=== PATIENT | male | born 1950 | race Caucasian/White ===

== ENCOUNTER → 2021-02-11 | Outpatient (CLI) | payer OTHER | END | disposition home or self-care (01) | LOC: RAH 13:18 | PROVIDERS: ATTEND Orthopaedic Surgery | DX: M24.811 Other specific joint derangements of right shoulder, not elsewhere classified (principal); M21.921 Unspecified acquired deformity of right upper arm | CPT/HCPCS: 73200 ==

== ENCOUNTER → 2022-09-09 | Outpatient (CLI) | payer OTHER | END | disposition home or self-care (01) | LOC: SHCH 13:58 | PROVIDERS: ATTEND Internal Medicine Cardiovascular Disease | DX: I51.7 Cardiomegaly (principal); R06.02 Shortness of breath; I51.89 Other ill-defined heart diseases | CPT/HCPCS: 93306 ==

== ENCOUNTER → 2022-09-13 | Outpatient (CLI) | payer OTHER ==
[~2022-09-13] MED LIST: REGADENOSON 0.4 MG/5 ML PF SYG IVP ONE
== END | disposition home or self-care (01) ==
LOC: SHCH 08:55
PROVIDERS: ATTEND Internal Medicine Cardiovascular Disease
DX: I20.9 Angina pectoris, unspecified (principal); R94.31 Abnormal electrocardiogram [ECG] [EKG]
CPT/HCPCS: 78452; 96374; 93017; J2785; A9500 ×2

== ENCOUNTER → 2023-05-19 | Outpatient (CLI) | payer OTHER | END | disposition home or self-care (01) | LOC: RAH 11:59 | PROVIDERS: ATTEND Orthopaedic Surgery | DX: M17.11 Unilateral primary osteoarthritis, right knee (principal) | CPT/HCPCS: 73700 ==

== ENCOUNTER 2023-06-13 05:51 | Observation (INO) | payer OTHER ==
[2023-06-07 16:46] VITALS: BP 128/78; PULSE 77; RESP 17
[~2023-06-13] VITALS: Ht 162.6 cm; Wt 74.7 kg
[2023-06-13] VITALS (38 sets, daily range): BP systolic 111–149; BP diastolic 65–96; PULSE 40–82; RESP 14–20; O2SAT 98–99
[2023-06-13] MEDS: CEFAZOLIN SODIUM 2 GM VIAL ONE (07:17)
[2023-06-13] MEDS: LACTATED RINGERS 1000ML 1,000 ML IV ONE (07:17)
[2023-06-13] MEDS ORDERED: POTASSIUM CHLORIDE 10% ELIXIR 20 MEQ/15 ML UDCUP PO PRN (08:30)
[2023-06-13] MEDS ORDERED: POTASSIUM CHLORIDE 20MEQ/100ML 100 ML IV PRN (08:30)
[2023-06-13] MEDS: ACETAMINOPHEN 1,000 MG/100 ML VIAL IV SCH ×2 (08:30→20:23)
[2023-06-13] MEDS ORDERED: HYDROCODONE/ACETAMINOPHEN 5/325 MG TAB PO PRN (08:30)
[2023-06-13] MEDS: FAMOTIDINE 20MG TAB PO SCH (09:00)
[2023-06-13] MEDS: ASPIRIN 81 MG EC TAB PO SCH (09:00)
[2023-06-13] MEDS: POLYETHYLENE GLYCOL 3350 17 GM POWD.PACK PO SCH (09:00)
[2023-06-13] MEDS ORDERED: TRANEXAMIC ACID 1000MG/10ML ONE ×2 (09:16→09:36)
[2023-06-13] MEDS ORDERED: DICL35CA3 PO (10:12)
[2023-06-13] MEDS ORDERED: GABA300S3 PO (10:12)
[2023-06-13] MEDS ORDERED: BUSP5TAB3 PO (10:12)
[2023-06-13] MEDS ORDERED: TIZA4CAP8 PO (10:12)
[2023-06-13] MEDS ORDERED: MIDAZOLAM HCL 1 MG/ML 2ML VIAL ONE (10:34)
[2023-06-13] MEDS ORDERED: ROPIVACAINE 0.5% 5MG/ML 30ML ONE (10:36)
[2023-06-13] MEDS ORDERED: PROPOFOL 10 MG/ML 20ML VIAL IV ONE (10:39)
[2023-06-13] MEDS ORDERED: ROCURONIUM BROMIDE 10MG/1ML 5ML VL ONE ×2 (10:39→11:25)
[2023-06-13] MEDS ORDERED: DEXAMETHASONE SOD PHOSPHATE 10MG/ML 1ML VIAL ONE (10:48)
[2023-06-13] MEDS: CEFAZOLIN SODIUM 2 GM VIAL IVPB ONE (11:10)
[2023-06-13 11:23] LABS: CREATININE 0.7 mg/dL (0.5-1.3); POTASSIUM 3.2 mmol/L (3.5-5.1)
[2023-06-13 11:25] LABS: INR 1.01 (0.85-1.15); PROTHROMBIN TIME 11.9 SEC (9.6-11.6)
[2023-06-13 11:26] LABS: BASOPHILS # (AUTO) 0.04 K/uL (0.00-0.20); BASOPHILS % (AUTO) 0.6 % (0.0-5.0); EOSINOPHILS # (AUTO) 0.25 K/uL (0.00-0.70); EOSINOPHILS % (AUTO) 3.7 % (0.0-8.0); HEMATOCRIT 38.3 % (42-54); IMMATURE GRANULOCYTE ABSOLUTE 0.02 K/uL (0-1); LYMPHOCYTES # (AUTO) 2.3 K/uL (1.0-4.8); LYMPHOCYTES % (AUTO) 34.5 % (21.0-51.0); MEAN CORPUSCULAR HEMOGLOBIN 30.6 pg (27.0-33.0); MEAN CORPUSCULAR HGB CONC 33.4 g/dL (32.0-36.0); MEAN CORPUSCULAR VOLUME 91.6 fL (79-99); MONOCYTES # (AUTO) 0.7 K/uL (0.1-1.0); MONOCYTES % (AUTO) 9.7 % (3.0-13.0); NEUTROPHILS # (AUTO) 3.5 K/uL (1.8-7.7); NEUTROPHILS % (AUTO) 51.2 % (40.0-77.0); PARTIAL THROMBOPLASTIN TIME 29.9 SEC (26.3-35.5); PLATELET COUNT (AUTO) 205 K/uL (130-400); RED BLOOD CELL COUNT(AUTO) 4.18 MIL/uL (4.50-6.20); RED CELL DISTRIBUTION WIDTH 13.4 % (11.0-15.5); WHITE BLOOD COUNT (AUTO) 6.8 K/uL (4.8-10.8)
[2023-06-13] MEDS ORDERED: FENTANYL CITRATE PF 50 MCG/1 ML 2ML VIAL ONE ×2 (11:28→11:52)
[2023-06-13] MEDS: CALDOLOR 800MG+NS 250ML 250 ML IV SCH (11:30)
[2023-06-13] MEDS ORDERED: IBUPROFEN 800MG + NS 250ML IV SCH (11:30)
[2023-06-13] MEDS: HYDROMORPHONE 1 MG INJ ONE (11:44)
[2023-06-13] MEDS ORDERED: NEOSTIGMINE METHYLSULFATE 1MG/ML IV ONE (12:17)
[2023-06-13] MEDS: ACETAMINOPHEN 1,000 MG/100 ML VIAL IV ONE (13:27)
[2023-06-13] MEDS ORDERED: CEFAZOLIN SODIUM 2 GM VIAL IVPB SCH (13:30)
[2023-06-13] MEDS: 0.9%NACL 1000ML 1,000 ML IV SCH (16:49)
[2023-06-13] MEDS: CEFAZOLIN SODIUM 2 GM VIAL IVPB SCH (19:01)
[2023-06-14] VITALS (8 sets, daily range): BP systolic 127–144; BP diastolic 65–78; PULSE 68–118; RESP 18–20; O2SAT 95–98
[2023-06-14] MEDS: MORPHINE 4 MG SYG IVP PRN (02:49)
[2023-06-14 04:47] LABS: HEMATOCRIT 37.3 % (42-54); MEAN CORPUSCULAR HEMOGLOBIN 30.9 pg (27.0-33.0); MEAN CORPUSCULAR HGB CONC 33.2 g/dL (32.0-36.0); RED BLOOD CELL COUNT(AUTO) 4.01 MIL/uL (4.50-6.20); WHITE BLOOD COUNT (AUTO) 9.2 K/uL (4.8-10.8)
[2023-06-14 05:00] LABS: CREATININE 0.9 mg/dL (0.5-1.3); POTASSIUM 3.3 mmol/L (3.5-5.1)
[2023-06-14] MEDS: KCL 20 MEQ ERTAB PO PRN (06:30)
[2023-06-14] MEDS: HYDROCODONE/ACETAMINOPHEN 10/325 MG TAB PO PRN (06:31)
[2023-06-14] MEDS: ACETAMINOPHEN 500 MG TABLET PO PRN (16:41)
[2023-06-14] MEDS ORDERED: 0.9%NACL 1000ML 1,000 ML IV SCH (18:00)
[2023-06-14 18:04] LABS: BASOPHILS # (AUTO) 0.03 K/uL (0.00-0.20); BASOPHILS % (AUTO) 0.2 % (0.0-5.0); EOSINOPHILS # (AUTO) 0.04 K/uL (0.00-0.70); EOSINOPHILS % (AUTO) 0.3 % (0.0-8.0); HEMATOCRIT 39.6 % (42-54); IMMATURE GRANULOCYTE ABSOLUTE 0.06 K/uL (0-1); LYMPHOCYTES # (AUTO) 1.2 K/uL (1.0-4.8); LYMPHOCYTES % (AUTO) 9.6 % (21.0-51.0); MEAN CORPUSCULAR HGB CONC 33.1 g/dL (32.0-36.0); MEAN CORPUSCULAR VOLUME 93.8 fL (79-99); MONOCYTES # (AUTO) 0.9 K/uL (0.1-1.0); MONOCYTES % (AUTO) 6.6 % (3.0-13.0); NEUTROPHILS # (AUTO) 10.7 K/uL (1.8-7.7); NEUTROPHILS % (AUTO) 82.8 % (40.0-77.0); PLATELET COUNT (AUTO) 190 K/uL (130-400); RED BLOOD CELL COUNT(AUTO) 4.22 MIL/uL (4.50-6.20); RED CELL DISTRIBUTION WIDTH 13.2 % (11.0-15.5); WHITE BLOOD COUNT (AUTO) 12.9 K/uL (4.8-10.8)
[2023-06-14 18:25] LABS: POTASSIUM 3.7 mmol/L (3.5-5.1)
[2023-06-14 18:30] LABS: BILIRUBIN,TOTAL 1.8 mg/dL (0.2-1.0); MAGNESIUM 1.6 mg/dL (1.80-2.40); TOTAL PROTEIN, SERUM 6.9 g/dL (6.0-8.3)
[2023-06-14 19:18] LABS: APPEARANCE,URINE CLOUDY (CLEAR); BILIRUBIN,URINE NEGATIVE (NEGATIVE); COLOR,URINE YELLOW (YELLOW); GLUCOSE, URINE (UA) NEGATIVE (NEGATIVE); KETONES,URINE 5 mg/dL (NEGATIVE); LEUKOCYTE ESTERASE ,URINE 500 Leu/uL (NEGATIVE); NITRATE,URINE NEGATIVE (NEGATIVE); OCCULT BLOOD,URINE MODERATE (NEGATIVE); PH,URINE 6.5 (5.0-8.0); PROTEIN,URINE 30 mg/dL (NEGATIVE); UROBILINOGEN,URINE 0.2 mg/dL (0.2-1.0)
[2023-06-14 19:24] LABS: ADD UA MICROSCOPIC YES
[2023-06-14 19:30] LABS: BACTERIA,URINE Few /HPF (None Seen); SQUAMOUS EPITHELIAL CELL,UR Rare /HPF (0-2); WBC,URINE 26-50 /HPF (0-1)
[2023-06-14 19:32] LABS: SARS-CoV-2, RNA, NAAT NEGATIVE SARS CoV-2 (NEGATIVE)
[2023-06-14] MEDS: CEFTRIAXONE 1G VIAL IVPB SCH (20:03)
[2023-06-14 20:05] LABS: INFLUENZA TYPE A NEGATIVE FOR TYPE A (NEG); INFLUENZA TYPE B NEGATIVE FOR TYPE B (NEG)
[2023-06-15 03:04] VITALS: TEMP 100.5
[2023-06-15] MEDS: ONDANSETRON 4MG INJ IVP PRN (03:04)
[2023-06-15 03:59] VITALS: BP 133/86; PULSE 90; RESP 19
[2023-06-15 08:43] VITALS: BP 104/65; PULSE 91; RESP 18
[2023-06-15 09:30] VITALS: O2SAT 93
[2023-06-15 11:31] VITALS: BP 112/78; PULSE 74; RESP 18
[2023-06-16] MEDS ORDERED: BISACODYL 10 MG SUPP.RECT RC PRN (08:30)
== END 2023-06-15 15:45 | disposition home or self-care (01) ==
LOC: DAH 05:51 → DAHIP 05:52 → 4DH 16:25
PROVIDERS: ADMIT Orthopaedic Surgery; ATTEND Orthopaedic Surgery
DX: M17.11 Unilateral primary osteoarthritis, right knee (principal); Z20.822 Contact with and (suspected) exposure to COVID-19; M24.561 Contracture, right knee; N39.0 Urinary tract infection, site not specified; D72.829 Elevated white blood cell count, unspecified; E87.6 Hypokalemia; E83.42 Hypomagnesemia; E78.5 Hyperlipidemia, unspecified; M81.0 Age-related osteoporosis without current pathological fracture; R26.89 Other abnormalities of gait and mobility; Z79.899 Other long term (current) drug therapy
CPT/HCPCS: 87641; 64447; 27447; 96365; 96366 ×2; 96375 ×3; 80048; 85025 ×2; 85610; 85730; 36415 ×2; 97161; 97530 ×6; 96376 ×2; 96367; 96368; 83735; 80053; 85027; 87040 ×2; 87077; 87088; 87186; 87804 ×2; 83605 ×2; 81001; 87635; 71045; 97116 ×2; 93005; A6260; C1713; C1776 ×4; G0378 ×48; A4663; A4649 ×3; A4600; J7120; J3010 ×2; J1170; J3490 ×4; J1100; J2250; J2704; J2710; J2795; J1741 ×2; J0690 ×4; G0168; A4930; A6212; A4215; A4223; A4222; A4221; J0696; J2270 ×5; J2405